=== PATIENT | male | born 1985 ===

== ENCOUNTER 2017-11-21 23:24 | Emergency (ER) | payer SELFPAY ==
[2017-11-21 23:36] VITALS: BP 127/88
--- NOTE | 2017-11-22 | ED PDOC ---
HPI: CCC, URI, Sore Throat Time Seen by Provider: 11/21/17 23:37 Chief Complaint (Nursing): Flu-like Symptoms Chief Complaint (Provider): flu-like symptoms History Per: Patient History/Exam Limitations: no limitations Onset/Duration Of Symptoms: Days (1) Current Symptoms Are (Timing): Still Present Location Of Pain: Diffuse Myalgias, Headache Associated Symptoms: Fever, Chills, Cough, Myalgias, Nasal Congestion. denies: Sputum Additional History Per: Patient Additional Complaint(s): 32 y/o male presents with flu-like symptoms x 1 day. Patient reports headache, bodyaches, congestion, dry cough, and diarrhea. Denies neck pain, vomiting, chest pain, shortness of breath, palpitations, abdominal pain, recent travel. Patient's sister just tested positive for influenza, and he has been in contact with her. Patient's daughter also here sick with same. Robitussin taken for cough. Past Medical History Reviewed: Historical Data, Nursing Documentation, Vital Signs Vital Signs: Last Vital Signs Temp 98.5 F 11/22/17 00:57 Pulse 108 H 11/22/17 00:57 Resp 18 11/22/17 00:57 BP 127/88 11/21/17 23:34 Pulse Ox 95 11/22/17 00:57 - Medical History PMH: No Chronic Diseases - Surgical History Surgical History: No Surg Hx - Family History Family History: States: No Known Family Hx - Living Arrangements Living Arrangements: With Family - Home Medications Home Medications: Ambulatory Orders Medication Instructions Recorded Oseltamivir [Tamiflu] 75 mg PO BID #9 cap 11/22/17 - Allergies Allergies/Adverse Reactions: Allergies Allergy/AdvReac Type Severity Reaction Status Date / Time No Known Allergies Allergy Verified 11/21/17 23:34 Review of Systems ROS Statement: Except As Marked, All Systems Reviewed And Found Negative Constitutional: Positive for: Fever, Chills, Weakness ENT: Positive for: Nose Discharge Respiratory: Positive for: Cough Gastrointestinal: Positive for: Diarrhea Physical Exam - Reviewed Nursing Documentation Reviewed: Yes Vital Signs Reviewed: Yes - Physical Exam Appears: Positive for: Well, Non-toxic, No Acute Distress Head Exam: Positive for: ATRAUMATIC, NORMAL INSPECTION, NORMOCEPHALIC Skin: Positive for: Normal Color Eye Exam: Positive for: Normal appearance ENT: Positive for: Normal ENT Inspection Cardiovascular/Chest: Positive for: Regular Rate, Rhythm Respiratory: Positive for: Normal Breath Sounds Gastrointestinal/Abdominal: Positive for: Normal Exam Back: Positive for: Normal Inspection Extremity: Positive for: Normal ROM Neurologic/Psych: Positive for: Alert, Oriented - ECG O2 Sat by Pulse Oximetry: 96 - Progress ED Course And Treament: Ibuprofen PO, Tamiflu PO Patient educated on findings, discharged with rx Tamiflu. Advised symptomatic treatment. Fluids. Rest. Follow up PMD 2-3 days. Return precautions given. Disposition - Clinical Impression Clinical Impression: Influenza-like illness - Patient ED Disposition Is Patient to be Admitted: No Counseled Patient/Family Regarding: Studies Performed, Diagnosis, Need For Followup, Rx Given - Disposition Disposition: Routine/Home Disposition Time: 01:17 Condition: IMPROVED Prescriptions: Oseltamivir [Tamiflu] 75 mg PO BID #9 cap Instructions: Influenza (ED) Forms: [employer] ([place]), [facility] ED School/Work Excuse
[2017-11-22 00:58] VITALS: TEMP 98.5
[2017-11-22 01:17] VITALS: O2SAT 96
[2017-11-22 01:31] VITALS: PULSE 105; RESP 16
== END 2017-11-22 01:30 | disposition home or self-care (01) ==
LOC: H.ER 23:24
DX: J11.1 Influenza due to unidentified influenza virus with other respiratory manifestations (principal)

== ENCOUNTER 2018-05-06 05:05 | Emergency (ER) | payer OTHER ==
[2018-05-06 05:22] VITALS: RESP 18
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
[2018-05-06 07:45] VITALS: BP 118/70; TEMP 98.2
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
[2018-05-06 08:58] VITALS: PULSE 108; O2SAT 96
== END 2018-05-06 08:55 | disposition home or self-care (01) ==
LOC: H.ER 05:05
DX: S01.511A Laceration without foreign body of lip, initial encounter (principal); S09.90XA Unspecified injury of head, initial encounter; Y04.0XXA Assault by unarmed brawl or fight, initial encounter; Y92.89 Other specified places as the place of occurrence of the external cause

== ENCOUNTER 2019-02-13 20:15 | Emergency (ER) | payer SELFPAY ==
[2019-02-13] MEDS ORDERED: Sodium Chloride 0.9% 1,000 ML IV STA (20:56)
--- NOTE | 2019-02-13 21:00 | ED PDOC ---
HPI: Abdomen Time Seen by Provider: 02/13/19 20:50 Chief Complaint (Nursing): Abdominal Pain Chief Complaint (Provider): abdominal pain History Per: Patient History/Exam Limitations: no limitations Onset/Duration Of Symptoms: Days (2) Current Symptoms Are (Timing): Still Present Location Of Pain/Discomfort: Diffuse Associated Symptoms: Nausea, Vomiting, Diarrhea Additional Complaint(s): 34 y/o male presents for evaluation of diffuse abdominal pain x 2 days. Associated vomiting. Patient states diarrhea started today, along with chills and headaches. Denies cough, congestion, chest pain, shortness of breath, pal pitations, urinary symptoms, recent travel. Patient states his sister was just sick with the flu. Past Medical History Reviewed: Historical Data, Nursing Documentation, Vital Signs Vital Signs: Last Vital Signs Temp 101.9 F H 02/13/19 20:44 Pulse 87 02/13/19 20:44 Resp 18 02/13/19 20:44 BP 144/84 02/13/19 20:44 Pulse Ox 97 02/13/19 20:44 - Medical History PMH: No Chronic Diseases - Surgical History Surgical History: No Surg Hx - Family History Family History: States: No Known Family Hx - Immunization History Hx Tetanus Toxoid Vaccination: Yes - Home Medications Home Medications: Ambulatory Orders Medication Instructions Recorded Oseltamivir Cap [Tamiflu] 75 mg PO BID #9 cap 11/22/17 Amoxicillin/Clavulanate [Augmentin 1 tab PO BID #14 tab 05/06/18 875 MG-125 MG] Naproxen [Naprosyn] 500 mg PO BID PRN #20 tablet 05/06/18 Dicyclomine [Bentyl] 20 mg PO TID PRN #15 tab 02/14/19 Ondansetron [Zofran] 4 mg PO Q8H PRN #10 tab 02/14/19 - Allergies Allergies/Adverse Reactions: Allergies Allergy/AdvReac Type Severity Reaction Status Date / Time No Known Allergies Allergy Verified 11/21/17 23:34 Review of Systems ROS Statement: Except As Marked, All Systems Reviewed And Found Negative Constitutional: Positive for: Fever Gastrointestinal: Positive for: Nausea, Vomiting, Abdominal Pain, Diarrhea Physical Exam - Reviewed Nursing Documentation Reviewed: Yes Vital Signs Reviewed: Yes - Physical Exam Appears: Positive for: Well, Non-toxic, No Acute Distress Head Exam: Positive for: ATRAUMATIC, NORMAL INSPECTION, NORMOCEPHALIC Skin: Positive for: Normal Color Eye Exam: Positive for: Normal appearance ENT: Positive for: Normal ENT Inspection Cardiovascular/Chest: Positive for: Regular Rate, Rhythm Respiratory: Positive for: Normal Breath Sounds Gastrointestinal/Abdominal: Positive for: Bowel Sounds, Soft, Tenderness (diffuse), Distended Back: Positive for: Normal Inspection Extremity: Positive for: Normal ROM Neurological/Psych: Positive for: Awake, Alert, Oriented (x3) - Laboratory Results Result Diagrams: 02/13/19 21:30 02/13/19 21:30 - ECG O2 Sat by Pulse Oximetry: 97 - Progress ED Course And Treament: -cbc -cmp -lipase -lactic acid -blood cultures -urinalysis -influenza -IV NS bolus -IV zofran -PO tylenol -PO bentyl -CT abd/pelvis CT SCAN OF THE ABDOMEN AND PELVIS WITH CONTRAST. CLINICAL HISTORY: Fever vomiting diarrhea abdominal pain (Hx) TECHNIQUE: Multiple axial and coronal CT images were obtained through the abdomen and pelvis after administration of intravenous and oral contrast material. COMMENTS: Mild thickening of the proximal small bowels. Changes of central mesenteric panniculitis. Fat containing right inguinal hernia without incarceration. The liver is of uniform attenuation without mass or defect. There is no intra or extrahepatic biliary ductal dilatation. The spleen is normal. The gallbladder is within normal limits. The pancreas is of normal contour and attenuation characteristics. There is no evidence of adrenal mass. Both kidneys demonstrate prompt and equal nephrograms. The kidneys are normal in size, shape and configuration. There is no evidence of renal or ureteral mass. No renal or ureteral calculi are identified. There is no hydroureter or hydronephrosis. No evidence for appendicitis. No evidence for small or large bowel obstruction. There is no evidence of abdominal ascites or lymphadenopathy. There is no evidence of intrinsic or extrinsic bladder mass. There is no pelvic ascites or lymphadenopathy. Images of the lung bases show no evidence of pleural or parenchymal mass. There are no pleural effusions. The bony structures are free of lytic or blastic lesions. IMPRESSION: Uncomplicated enteritis. On re-eval, patient states he is feeling better Patient educated on findings, dishcharged with rx Zofran, Bentyl Advised Ibuprofen/Tylenol PRN fever Increase fluid intake. BRAT diet Follow up PMD within 2-3 days Return precautions given Disposition - Clinical Impression Clinical Impression: Gastroenteritis - Patient ED Disposition Is Patient to be Admitted: No Counseled Patient/Family Regarding: Studies Performed, Diagnosis, Need For Followup, Rx Given - Disposition Referrals: [facility] [Outside] Disposition: Routine/Home Disposition Time: 02:05 Condition: IMPROVED Prescriptions: Dicyclomine [Bentyl] 20 mg PO TID PRN #15 tab PRN Reason: Pain, Mild (1-3) Ondansetron [Zofran] 4 mg PO Q8H PRN #10 tab PRN Reason: Nausea/Vomiting Instructions: Gastroenteritis (ED)
[2019-02-13 21:45] LABS: BASO % 0.5 % (0.0-2.0); EOS # 0.1 K/uL (0.0-0.7); EOS % 0.8 % (0.0-4.0); HEMOGLOBIN 13.1 g/dL (12.0-18.0); LYMPH # 0.9 K/uL (1.0-4.3); LYMPH % 12.7 % (20.0-40.0); MEAN CELL VOLUME 95.5 fl (80.0-94.0); MEAN CORPUSCULAR HEMOGLOBIN 33.2 pg (27.0-31.0); MEAN CORPUSCULAR HGB CONC 34.7 g/dL (33.0-37.0); MONO # 0.6 K/uL (0.0-0.8); MONO % 8.5 % (0.0-10.0); NEUT # 5.3 K/uL (1.8-7.0); NEUT % 77.5 % (50.0-75.0); NRBC % 0.1 % (0.0-0.0); RBC 3.94 Mil/uL (4.40-5.90); WHITE BLOOD COUNT 6.9 K/uL (4.8-10.8)
[2019-02-13 21:58] LABS: ALB/GLOB RATIO 1.4 (1.0-2.1); ALBUMIN 4.4 g/dL (3.5-5.0); ALT/SGPT 58 U/L (21-72); AST/SGOT 35 U/L (17-59); BLOOD UREA NITROGEN 12 mg/dl (9-20); CALCIUM 8.3 mg/dL (8.4-10.2); GFR NON-AFRICAN AMERICAN > 60; LIPASE 182 U/L (23-300)
[2019-02-13 22:02] LABS: SQUAMOUS EPITHIAL < 1 /hpf (0-5); URINE BACTERIA RARE (<OCC); URINE BILIRUBIN NEGATIVE (NEGATIVE); URINE BLOOD NEGATIVE (NEGATIVE); URINE CLARITY SLIGHTY-CLOUDY (Clear); URINE COLOR YELLOW (YELLOW); URINE GLUCOSE (UA) NEG (NEGATIVE); URINE LEUKOCYTE ESTERASE NEG Leu/uL (Negative); URINE PROTEIN NEGATIVE (NEGATIVE)
[2019-02-13] MEDS ORDERED: Iohexol 240 (50 ml) PO ONE (22:21)
[2019-02-13] MEDS ORDERED: Iohexol 240 (50 ml) ONE (22:46)
[2019-02-14] MEDS ORDERED: Sodium Chloride 0.9% 50 ML IV ONE (00:41)
[2019-02-14] MEDS ORDERED: Iohexol 300 100 ML IJ ONE (00:41)
[2019-02-14 02:18] VITALS: BP 119/72; PULSE 90; RESP 16; TEMP 97.8; O2SAT 94
--- NOTE | 2019-02-14 11:50 | CT ---
Date of service: 02/14/2019 PROCEDURE: CT Abdomen and Pelvis with contrast HISTORY: fever, vomiting, diarrhea, abd pain COMPARISON: None available. TECHNIQUE: CT scan of the abdomen and pelvis was performed after administration of intravenous contrast. Oral contrast was administered. Coronal and sagittal reformatted images were obtained. Contrast dose: 95 mL Omnipaque 300 Radiation dose: Total exam DLP = 807.35 mGy-cm. This CT exam was performed using one or more of the following dose reduction techniques: Automated exposure control, adjustment of the mA and/or kV according to patient size, and/or use of iterative reconstruction technique. FINDINGS: LOWER THORAX: The visualized lungs are clear. LIVER: Mild hepatomegaly and fatty liver. Normal homogeneous enhancement. No gross lesion or ductal dilatation. GALLBLADDER AND BILE DUCTS: Well distended. No calcified gallstones, wall thickening or pericholecystic fluid. PANCREAS: Normal in size with homogeneous enhancement. No gross lesion or ductal dilatation. SPLEEN: Normal in size and appearance. ADRENALS: No discrete nodule. KIDNEYS AND URETERS: Normal in size with homogeneous enhancement. No hydronephrosis. No solid mass. VASCULATURE: No aortic aneurysm. There are no aortic atherosclerotic calcifications or mural plaque present. BOWEL: The small bowel loops are normal in caliber. There is apparent moderate diffuse circumferential mural thickening in the colon and rectum. There is backwash ileitis. No bowel obstruction. APPENDIX: Normal appendix. PERITONEUM: No free fluid. No free air. LYMPH NODES: No enlarged lymph nodes. BLADDER: Well distended and normal in appearance. REPRODUCTIVE: The prostate gland is normal in size. BONES: No acute fracture. Within normal limits for the patient's age. OTHER FINDINGS: None. IMPRESSION: Findings are most compatible with nonspecific acute infectious/inflammatory pancolitis and proctitis with backwash ileitis. No evidence for bowel obstruction. Mild hepatomegaly and fatty liver. A preliminary report was provided by [employer]. The final report is tagged to the PA review folder.
== END 2019-02-14 02:35 | disposition home or self-care (01) ==
LOC: H.ER 20:15
DX: K52.9 Noninfective gastroenteritis and colitis, unspecified (principal)
CPT/HCPCS: 74177; 80053; 81003; 83605; 83690; 85025; 87040; 87804; 99283; J2405; J7030; Q9966; Q9967